=== PATIENT | female | born 1995 | race Caucasian/White ===

== ENCOUNTER → 2016-06-10 | Outpatient (REF) ==
[~2016-06-10] MED LIST: AMOXICILLIN 25250 MG; LEXAPRO 10MG10 MG; RECLIPSEN 0.151 TAB
== END ==
LOC: WSOH 11:52
DX: Z02.1 Encounter for pre-employment examination (principal)

== ENCOUNTER 2017-10-04 20:17 | Emergency (ER) | payer OTHER ==
[~2017-10-04] VITALS: Ht 170.2 cm; Wt 107.7 kg
[2017-10-04 20:20] VITALS: TEMP 98
[2017-10-04 20:43] LABS: COLLECTION METHOD CLEAN CATCH
[2017-10-04 20:55] LABS: MUCOUS Present /lpf; PH 5 (5-8); URINE APPEARANCE Clear; URINE BACTERIA Rare /hpf; URINE BILIRUBIN Negative (NEGATIVE); URINE BLOOD Negative (NEGATIVE); URINE COLOR Yellow; URINE GLUCOSE Negative (NEGATIVE); URINE KETONE Negative (NEGATIVE); URINE LEUKOCYTE ESTERASE Negative (NEGATIVE); URINE NITRATE Negative (NEGATIVE); URINE PROTEIN(semi-quant) Negative (NEGATIVE); URINE UROBILINOGEN Negative (NEGATIVE)
[2017-10-04] MEDS ORDERED: FLEXERIL 1010 MG/TAB PO (22:33)
[2017-10-04 22:50] VITALS: BP 139/76; PULSE 87
== END 2017-10-04 22:50 | disposition home or self-care (01) ==
LOC: COL.ER 20:17
PROVIDERS: Nurse Practitioner
DX: S16.1XXA Strain of muscle, fascia and tendon at neck level, initial encounter (principal); S39.012A Strain of muscle, fascia and tendon of lower back, initial encounter; Z88.2 Allergy status to sulfonamides; V43.52XA Car driver injured in collision with other type car in traffic accident, initial encounter; Y92.488 Other paved roadways as the place of occurrence of the external cause
CPT/HCPCS: J1885; J2360

== ENCOUNTER → 2017-12-23 | Outpatient (CLI) | payer OTHER ==
[~2017-12-23] VITALS: Ht 170.2 cm; Wt 110.5 kg
[~2017-12-23] MED LIST changes: +FLEXERIL 1010 MG/TAB PO; -RECLIPSEN 0.151 TAB; +RECLIPSEN 0.151 TAB PO; +SYNTHROID0.05 MG/TA PO
[2017-12-23 08:42] VITALS: BP 152/89; PULSE 94
[2017-12-23 10:00] VITALS: BP 142/92; PULSE 78
== END ==
LOC: COL.RAD 08:27
DX: E04.1 Nontoxic single thyroid nodule (principal)